=== PATIENT | male | born 2000 | race Caucasian/White ===

== ENCOUNTER 2022-01-02 21:48 | Emergency (ER) | payer MEDICAID ==
[~2022-01-02] VITALS: Ht 172.7 cm; Wt 110.7 kg
--- NOTE | 2022-01-02 21:50 | NUR ---
PATIENT PLACED IN ED # 4A WITH REPORT OF CALLES AND PSEUDO SEIZURE. MAINTAIN SAFE ENVIRONMENT. ONSET X COUPLE OF HOURS PER PT.
--- NOTE | 2022-01-02 22:56 | NUR ---
OFF TO CT FOR HEAD CT W/O CONTRAST.
--- NOTE | 2022-01-02 23:06 | NUR ---
PER CHARGE NURSE PATIENT HAVING PSEUDO SEIZURE, LEFT ED IN W/C FOR HEAD CT AND ST TAKEN TO CT DEPARTMENT FOR JUV[employer]ER.
[2022-01-02 23:07] LABS: HEMATOCRIT 39.6 % (36.7-47.1); MEAN CORPUSCULAR HEMOGLOBIN 25.1 uug (23.8-33.4); MEAN CORPUSCULAR VOLUME 75.4 fL (73.0-96.2); PLATELET COUNT (AUTO) 349 K/uL (152-348)
[2022-01-02 23:11] LABS: CREATININE 0.9 mg/dL (0.6-1.3); POTASSIUM 4.1 mmol/L (3.5-5.1)
[2022-01-02 23:17] LABS: BILIRUBIN,DIRECT 0.1 mg/dL (0.0-0.2); BILIRUBIN,TOTAL 0.2 mg/dL (0.2-1.0); TOTAL PROTEIN, SERUM 8.8 g/dL (6.4-8.2)
[2022-01-02] MEDS ORDERED: CODE30TA PO (23:25)
--- NOTE | 2022-01-02 23:30 | NUR ---
DISCUSSED AND GIVE PATIENT DISCHARGE INSTRUCTIONS, RX, AND F/U APPT AND PATIENT VERBALIZED UNDERSTANDING. LEFT ED AMBULATORY AND WITH INJURIES OR SEIZURE ACTIVITIES.
== END 2022-01-02 23:30 | disposition home or self-care (01) ==
LOC: ER 21:51
DX: R51.9 Headache, unspecified (principal); G40.909 Epilepsy, unspecified, not intractable, without status epilepticus; Z79.899 Other long term (current) drug therapy; Z86.73 Personal history of transient ischemic attack (TIA), and cerebral infarction without residual deficits; F90.9 Attention-deficit hyperactivity disorder, unspecified type; Z88.6 Allergy status to analgesic agent; Z88.8 Allergy status to other drugs, medicaments and biological substances; Z87.828 Personal history of other (healed) physical injury and trauma
CPT/HCPCS: 36415; 70450; 85025; A4663